=== PATIENT | female | born 1995 | race Caucasian/White ===

== ENCOUNTER 2025-04-19 14:25 | Emergency (ER) | payer OTHER, SELFPAY ==
--- NOTE | 2025-04-19 14:39 | ED_ITS ---
HPI - Female Genitourinary General Chief complaint: Urogenital-Female Stated complaint: Uti Symptoms Time Seen by Provider: 04/19/25 14:45 Source: patient Mode of arrival: ambulatory Limitations: no limitations History of Present Illness HPI Narrative: Tracy is a 29-year-old female patient presenting to the clinic today with complaints of possible UTI. She is reporting some burning with urination and some itching. Denies any vaginal discharge or abnormal odor. She is currently on her menses. No concern for or any sexually transmitted infections. No pain or discomfort to the external vaginal area. Denies any abdominal pain, back pain, fevers, chills, nausea, or vomiting. Related Data Home Medications ?Medication ?Instructions ?Recorded ?Confirmed ?Last Taken ?Type levonorgestrel-ethinyl estradiol 1 tablet PO DAILY 09/02/22 09/02/22 Unknown History 0.1 mg-20 mcg tablet (Lutera (28)) Allergies Allergy/AdvReac Type Severity Reaction Status Date / Time amphetamine Allergy Unknown Skin Verified 04/19/25 15:00 Reaction erythromycin base Allergy Unknown upset Verified 04/19/25 15:00 stomach Penicillins Allergy Unknown Skin Verified 04/19/25 15:00 Reaction Sulfa (Sulfonamide Allergy Unknown Abdominal Verified 04/19/25 15:00 Antibiotics) Pain Review of Systems Review of Systems: Pertinent positives per HPI. Patient denies any fever, chills, rash, headache, visual changes, dizziness, cough, runny nose, sore throat, shortness of breath, chest pain, palpitations, nausea, vomiting, diarrhea, constipation, abdominal pain. REPLACED BY [facility] Surgical History Surgical History [place] teeth removed (~2009) Family History Family History Grandparent Diabetes mellitus Mother Family history of mental disorder Sibling Family history of mental disorder Social History Social History Smoking status: Never smoker Second hand tobacco smoke exposure: No Alcohol intake: current Drinks per week: 2 Substance use type: does not use Comments At the time of my signature, I reviewed and agree with the nursing past medical, surgical, social, and family history. There is no relevant family history pertinent to the patient complaint. Exam Narrative: General: Well-developed, well nourished, in no apparent distress. Head: Normocephalic, atraumatic. Cardio: Regular rate and rhythm, s1 and s2 normal, no murmur appreciated. Resp: Clear to auscultation bilaterally, no rhonchi, rales, wheezing or rubs. Abdomen: Soft, pliable, bowel sounds present in all quadrants, non-tender to palpation, no organomegly, no CVAT tenderness. : Deferred Course Course Emergency Course: Portions of this record may have been created with voice recognition software. Level of Care: Express Care Visit Vital Signs Vital signs: Vital Signs Temperature 36.8 C 04/19/25 14:47 Pulse Rate 82 04/19/25 14:47 Respiratory Rate 16 04/19/25 14:47 Blood Pressure 120/73 04/19/25 14:47 Pulse Oximetry 100 04/19/25 14:47 Oxygen Delivery Room Air 04/19/25 14:47 Temperature 36.8 C 04/19/25 14:47 Pulse Rate 82 04/19/25 14:47 Respiratory Rate 16 04/19/25 14:47 Blood Pressure 120/73 04/19/25 14:47 Pulse Oximetry 100 04/19/25 14:47 Oxygen Delivery Room Air 04/19/25 14:47 Vital signs reviewed MDM - Female Genitourinary MDM Narrative Medical decision making narrative: At the time of visit patient is resting comfortably on the exam table. Patient appears to be nontoxic. Labs: Urinalysis was performed and was positive for 3+ leukocytes 1+ blood. Patient is currently on her menses. Plan: I suspect patient has UTI. Prescription for Macrobid was sent to the pharmacy. Patient has allergies to penicillins and sulfa antibiotics. Supportive measures were discussed with the patient and they voiced understanding discharge instructions and agrees to treatment plan. Return precautions reviewed Differential Diagnosis Differential diagnosis: Likely urinary tract infection, bacterial vaginosis, trichomoniasis, vaginitis, cystitis and other (Vaginal yeast infection) Lab Data Labs: Lab Results 04/19/25 Range/Units 14:50 POC Urine Color Light/pale POC Urine Clarity Clear POC Urine pH 5.5 POC Ur Specif [place] 1.005 POC Urine Protein Negative (Negative) POC Ur Glucose (UA) Negative (Negative) POC Urine Ketones Negative (Negative) POC Urine Blood 1+ (Negative) POC Urine Nitrite Negative (Negative) POC Urine Bilirubin Negative (Negative) POC Urine Urobilinogen 0.2 POC U Leukocyte Esteras 3+ (Negative) Discharge Plan Discharge Clinical Impression: UTI (urinary tract infection) Qualifiers: Urinary tract infection type: acute cystitis Hematuria presence: with hematuria Qualified Code(s): N30.01 - Acute cystitis with hematuria Patient Disposition: Home Condition: Stable Instructions: Antibiotic Form, Urinary Tract Infection in Women (ED) Additional Instructions: Urinalysis shows 3+ leukocytes and 1+ blood. We will send urine for culture. Take Macrobid as prescribed Increase fluids and stay well hydrated Wipe front to back. May use wet wipes. Avoid tub baths If sexually active- pee before and after intercourse. Wear cotton panties Avoid tight clothing up against the genitals Follow up with your PCP in 1 week if symptoms persist. Patient Language: Panamanian Prescriptions: New nitrofurantoin monohyd/m-cryst [Macrobid] 100 mg capsule 100 mg PO Q12H 5 Days Qty: 10 0RF Rx Instructions: must administer with a meal/food No Action levonorgestrel-ethinyl estrad [Lutera (28)] 0.1-20 mg-mcg tablet 1 tablet PO DAILY citalopram 20 mg tablet See Rx Instructions .ROUTE .COMPLEX Qty: 90 3RF Dose Instruction: Take 1 tablet by mouth once daily Rx Instructions: Take 1 tablet by mouth once daily Follow-up/Referrals: PHYSICIAN,QUICK PRINT OPERATOR [Primary Care Provider] - Time of Disposition: 14:51 Quality NIHSS Nursing Documentation ED NIHSS nursing documentation: reviewed/agree
[2025-04-19 14:47] VITALS: BP 120/73; PULSE 82; RESP 16; TEMP 36.8; O2SAT 100
[2025-04-19 14:53] LABS: EDUAAPPEAR Clear; EDUABILI Negative (Negative); EDUABLOOD 1+ (Negative); EDUACOLOR1 Light/Pale; EDUAGLUCOSE Negative (Negative); EDUAKETONE Negative (Negative); EDUALEUKO 3+ (Negative); EDUANITRATE Negative (Negative); EDUAPH 5.5; EDUAPROTEIN Negative (Negative); EDUASPGRAVITY 1.005; EDUAUROBILI 0.2
== END 2025-04-19 14:56 | disposition home or self-care (01) ==
PROVIDERS: Emergency Provider Nurse Practitioner Family
DX: N30.01 Acute cystitis with hematuria (principal)
CPT/HCPCS: 81003; 87077; 87086; 87186; 99213; G0463

== ENCOUNTER 2025-08-29 09:43 | Emergency (ER) | payer OTHER, SELFPAY ==
--- NOTE | 2025-08-29 09:47 | ED.GENADULT ---
HPI - General Adult General Chief complaint: Upper Respiratory Infection Stated complaint: Sinus Infection Symptoms Source: patient Mode of arrival: ambulatory Limitations: no limitations History of Present Illness HPI narrative: Pt is a 29 y/o female presenting with c/o URI sx. Sx began 11 days ago and include rhinorrhea, sore throat, congestion, postnasal drip, voice hoarseness, cough--only current sx include cough (burning in chest with coughing), voice hoarseness and congestion. Reports sx wax and wane. NO tx initiated [employer]. NO known direct exposure to COVID,FLU,STREP,PNA. Does have a young daughter--she works as a hardware design engineer. No constitutional sx or 'double worsening'. No additional complaints. Related Data Home Medications ?Medication ?Instructions ?Recorded ?Confirmed ?Last Taken ?Type levonorgestrel-ethinyl estradiol 1 tablet PO DAILY 09/02/22 09/02/22 Unknown History 0.1 mg-20 mcg tablet (Lutera (28)) Allergies Allergy/AdvReac Type Severity Reaction Status Date / Time amphetamine Allergy Unknown Skin Verified 08/29/25 09:52 Reaction erythromycin base Allergy Unknown upset Verified 08/29/25 09:52 stomach Penicillins Allergy Unknown Skin Verified 08/29/25 09:52 Reaction Sulfa (Sulfonamide Allergy Unknown Abdominal Verified 08/29/25 09:52 Antibiotics) Pain Review of Systems Review of Systems: CONSTITUTIONAL: Denies body aches, fever, chills, or sweats. EYES: Denies visual changes, redness, or discharge. ENT: Reports congestion, voice hoarseness, Denies rhinorrhea, sore throat, or otalgia. CARDIOVASCULAR: Denies chest pain, palpitations, or edema. RESPIRATORY: Reports cough denies dyspnea. GASTROINTESTINAL: Denies abdominal pain, nausea, vomiting, or diarrhea. GENITOURINARY: Denies dysuria or hematuria. SKIN: Denies rash, itching, or wounds. MUSCULOSKELETAL: Denies back pain, joint pain, or myalgia. NEUROLOGIC: Denies headache, numbness, tingling, or weakness. PSYCH: Denies depression or anxiety. All systems reviewed & are unremarkable except as noted in HPI and below PMFSH Surgical History Surgical History [place] teeth removed (~2009) Family History Family History Grandparent Diabetes mellitus Mother Family history of mental disorder Sibling Family history of mental disorder Social History Social History Smoking status: Never smoker Second hand tobacco smoke exposure: No Alcohol intake: current Drinks per week: 2 Substance use type: does not use Exam Narrative: GENERAL: Well-appearing, well-nourished, and in no acute distress. HEAD: Normocephalic, atraumatic. EYES: EOMI. No redness or drainage. Conjunctivae normal. ENT: Mucous membranes pink and moist. Nares clear. No rhinorrhea. TMs normal bilaterally. Throat normal. Uvula midline. Sinuses are nontender to palpation. Scant amount of clear, postnasal drainage. NECK: Normal AROM. Supple. No lymphadenopathy. CHEST: No respiratory distress. Clear to auscultation. HEART: Regular rate and rhythm. No murmur appreciated. Normal peripheral pulses. ABDOMEN: Soft, nontender, nondistended, normal active bowel sounds. MUSCULOSKELETAL: No bony tenderness. EXTREMITIES: Normal range of motion. No edema. SKIN: Warm, dry, no rash. Capillary refill normal. Normal skin turgor. NEURO: No focal deficits. Alert and oriented x3. Gait steady. PSYCH: Normal affect. No signs of depression or anxiety. Course Course Level of Care: Express Care Visit Vital Signs Vital signs: Vital Signs Temperature 98.5 F 08/29/25 09:51 Pulse Rate 87 08/29/25 09:51 Respiratory Rate 16 08/29/25 09:51 Blood Pressure 113/81 08/29/25 09:51 Pulse Oximetry 100 08/29/25 09:51 Temperature 98.5 F 08/29/25 09:51 Pulse Rate 87 08/29/25 09:51 Respiratory Rate 16 08/29/25 09:51 Blood Pressure 113/81 08/29/25 09:51 Pulse Oximetry 100 08/29/25 09:51 Medical Decision Making Vital Signs Vital Signs: Vital Signs Temperature 98.5 F 08/29/25 09:51 Pulse Rate 87 08/29/25 09:51 Respiratory Rate 16 08/29/25 09:51 Blood Pressure 113/81 08/29/25 09:51 Pulse Oximetry 100 08/29/25 09:51 Temperature 98.5 F 08/29/25 09:51 Pulse Rate 87 08/29/25 09:51 Respiratory Rate 16 08/29/25 09:51 Blood Pressure 113/81 08/29/25 09:51 Pulse Oximetry 100 08/29/25 09:51 Discharge Plan Discharge Clinical Impression: Upper respiratory infection Qualifiers: URI type: unspecified URI Qualified Code(s): J06.9 - Acute upper respiratory infection, unspecified Cough Qualifiers: Cough type: other Qualified Code(s): R05.8 - Other specified cough Patient Disposition: Home Condition: Stable Instructions: Antibiotic Form, Viral Syndrome (ED) Additional Instructions: Go straight to ER should your symptoms become worse or should any new symptoms develop Patient Language: Micronesian Prescriptions: New prednisone 20 mg tablet 60 mg PO DAILY Qty: 15 0RF No Action nitrofurantoin monohyd/m-cryst [Macrobid] 100 mg capsule 100 mg PO Q12H 5 Days Qty: 10 0RF Rx Instructions: must administer with a meal/food levonorgestrel-ethinyl estrad [Lutera (28)] 0.1-20 mg-mcg tablet 1 tablet PO DAILY citalopram 20 mg tablet See Rx Instructions .ROUTE .COMPLEX Qty: 90 3RF Dose Instruction: Take 1 tablet by mouth once daily Rx Instructions: Take 1 tablet by mouth once daily Follow-up/Referrals: PHYSICIAN,DIRECTOR OF TEACHING AND LEARNING [Primary Care Provider, Internal Medicine] - 08/30/25 Time of Disposition: 09:57
[2025-08-29 09:51] VITALS: BP 113/81; PULSE 87; RESP 16; TEMP 36.9; O2SAT 100
== END 2025-08-29 10:00 | disposition home or self-care (01) ==
PROVIDERS: Emergency Provider Registered Nurse
DX: J06.9 Acute upper respiratory infection, unspecified (principal); R05.8 Other specified cough
CPT/HCPCS: 99213; G0463